=== PATIENT | male | born 1945 | race Two or more races ===

== ENCOUNTER 2023-11-15 18:55 | Emergency (ER) | payer OTHER ==
[~2023-11-15] VITALS: Ht 193 cm; Wt 83.0 kg
[2023-11-15 19:53] VITALS: BP 155/78; PULSE 89; RESP 18; TEMP 99; O2SAT 96
== END 2023-11-15 21:29 | disposition home or self-care (01) ==
LOC: ER 18:55
DX: S61.411A Laceration without foreign body of right hand, initial encounter (principal); R20.0 Anesthesia of skin; W18.09XA Striking against other object with subsequent fall, initial encounter; Y93.89 Activity, other specified; Y92.89 Other specified places as the place of occurrence of the external cause; Y99.8 Other external cause status
CPT/HCPCS: 12001